=== PATIENT | female | born 1940 | race Caucasian/White ===

== ENCOUNTER 2017-08-24 21:46 | Inpatient (IN) | payer MEDICARE, MEDICAID ==
[~2017-08-24] VITALS: Ht 162.6 cm; Wt 97.1 kg
--- NOTE | 2017-08-24 22:10 | NUR ---
Pt biba from home for c/o severe dizziness and generalized weakness since earlier today. Pt alert and oriented x 4. No neuro deficits noted. Pt ST on monitor. Resp even and unlabored. Pt resting in position of comfort for self. Awaiting further eval.
[2017-08-24] MEDS ORDERED: IV NORMAL SALINE 1000 ML BAG IV ONE (22:15)
[2017-08-24 22:37] LABS: BASOPHILS # (AUTO) 0.2 K/uL (0.0-8.0); BASOPHILS % (AUTO) 0.8 % (0.0-2.0); HEMATOCRIT 42.7 % (37-47); HEMOGLOBIN 14.2 G/DL (12.0-16.0); LYMPHOCYTES # (AUTO) 0.9 K/UL (0.8-4.8); LYMPHOCYTES % (AUTO) 3.7 % (20.5-51.5); MEAN CORPUSCULAR HEMOGLOBIN 29.5 UUG (27.0-31.0); MEAN CORPUSCULAR HGB CONC 33 g/dL (32.0-37.0); MEAN CORPUSCULAR VOLUME 88.4 FL (81.0-99.0); MONOCYTES # (AUTO) 0.5 K/UL (0.1-1.30); MONOCYTES % (AUTO) 2.1 % (0.0-11.0); NEUTROPHILS # (AUTO) 23.6 K/UL (1.8-8.9); NEUTROPHILS % (AUTO) 93.4 % (38.5-71.5); PLATELET COUNT (AUTO) 262 K/UL (150-450); RED BLOOD CELL COUNT(AUTO) 4.83 MIL/UL (4.2-5.4); WHITE BLOOD COUNT (AUTO) 25.2 K/UL (4.0-11.2)
[2017-08-24 22:45] LABS: CARBON DIOXIDE 24 mmol/L (21-32); CHLORIDE 98 mmol/L (98-107); CREATININE 1.1 mg/dL (0.6-1.3); GLUCOSE 231 mg/dL (74-106); POTASSIUM 3.2 mmol/L (3.5-5.1); UREA NITROGEN, BLOOD 21 mg/dL (7-18)
[2017-08-24 22:50] LABS: ALANINE AMINOTRANSFERASE 52 U/L (14-59); ALKALINE PHOSPHATASE 57 U/L (50-136); ASPARTATE AMINOTRANSFERASE 35 U/L (15-37); BILIRUBIN,DIRECT 0.1 mg/dL (0.0-0.2); BILIRUBIN,TOTAL 0.6 mg/dL (0.2-1.0); LIPASE 104 U/L (73-393); TOTAL PROTEIN, SERUM 7.5 g/dL (6.4-8.2)
[2017-08-24 22:52] LABS: BAND % (MANUAL) 7 % (0-10); LYMPHOCYTES % (MANUAL) 6 % (20-40); MONOCYTES % (MANUAL) 3 % (2-10); NEUTROPHILS % (MANUAL) 84 % (42-75)
--- NOTE | 2017-08-24 22:54 | NUR ---
Pt to CT via [facility]
--- NOTE | 2017-08-24 23:13 | NUR ---
Pt returned from CT via [facility].
--- NOTE | 2017-08-24 23:55 | NUR ---
Straight cath UA collected and sent.
[2017-08-25] MEDS ORDERED: PIPERACILLIN SODIUM/TAZOBACTAM 3.375 G in IV DEXTROSE 5% 50 ML IV ONE ×2
[2017-08-25] MEDS ORDERED: VANCOMYCIN IV 1,000 MG in IV DEXTROSE 5% 250 ML IV ONE ×2
[2017-08-25] MEDS ORDERED: IV NORMAL SALINE 1000 ML BAG IV ONE
[2017-08-25 00:02] LABS: *BILIRUBIN,URIN NEGATIVE (NEGATIVE); *BLOOD, URINE NEGATIVE (NEGATIVE); *CLARITY,URINE SLIGHTLY CLOUDY (CLEAR); *COLOR,URINE YELLOW (YELLOW); *KETONES,URINE NEGATIVE (NEGATIVE); *PROTEIN,URINE 1+ (NEGATIVE); *UROBILINOGEN,URINE 0.2 E.U./dl (NORMAL); LEUKOCYTE ESTERASE ,URINE NEGATIVE (NEGATIVE); NITRITE, URINE NEGATIVE (NEGATIVE); UGLUCOSE NEGATIVE (NEGATIVE)
--- NOTE | 2017-08-25 00:19 | NUR ---
ABT infusion started, will monitor for any adverse reactions. Pt resting in a position of comfort for self.
[2017-08-25] MEDS ORDERED: IV NS 1000 ML 1,000 ML IV PRN (00:23)
[2017-08-25] MEDS ORDERED: PIPERACILLIN/TAZOBACTAM/D5W 50 ML IV ONE (00:27)
[2017-08-25 00:29] LABS: BACTERIA,URINE FEW /HPF (NONE SEEN); MUCUS,URINE MANY /LPF (0-FEW); SQUAMOUS EPITHELIAL CELL,UR FEW /HPF (NONE SEEN); WBC,URINE 0-3 /HPF (0-3)
[2017-08-25] MEDS ORDERED: Z GUARD REMEDY PASTE 57 GM TUBE TOP PRN (00:30)
[2017-08-25] MEDS ORDERED: CEFTRIAXONE 1 G in IV DEXTROSE 5% 50 ML IV SCH (00:30)
[2017-08-25] MEDS ORDERED: MAGNESIUM HYDROXIDE 30 ML LIQUID UDC PO PRN (00:30)
[2017-08-25] MEDS ORDERED: ENOXAPARIN SODIUM 40 MG/0.4 ML DISP.SYRIN SQ SCH (00:30)
[2017-08-25] MEDS ORDERED: ONDANSETRON 4 MG/2 ML VIAL IV PRN (00:30)
[2017-08-25] MEDS ORDERED: HYDROCODONE/APAP 5-325MG TABLET PO PRN (00:30)
[2017-08-25] MEDS ORDERED: ACETAMINOPHEN 325 MG TABLET PO PRN (00:30)
[2017-08-25] MEDS ORDERED: ARIP2TAB3 PO (01:23)
[2017-08-25] MEDS ORDERED: EZET10TA13 PO (01:23)
[2017-08-25] MEDS ORDERED: TOLT4CAP PO (01:23)
[2017-08-25] MEDS ORDERED: MECL-102 PO (01:23)
[2017-08-25] MEDS ORDERED: VALS160T2 PO (01:23)
[2017-08-25] MEDS ORDERED: AZIT250T6 PO (01:23)
[2017-08-25] MEDS ORDERED: MONT10TA22 PO (01:23)
[2017-08-25] MEDS ORDERED: COLC0.6T67 PO (01:23)
[2017-08-25] MEDS ORDERED: DICL2SOL TP (01:23)
[2017-08-25] MEDS ORDERED: POTA10CA43 PO (01:23)
[2017-08-25] MEDS ORDERED: janumet PO (01:23)
[2017-08-25] MEDS ORDERED: creon PO (01:23)
--- NOTE | 2017-08-25 01:25 | NUR ---
First ABT infusion completed, no adverse reactions noted. Second ABT infusion started, will monitor for any adverse reactions. Pt up to bedside commode and back to bed without problem. Pt resting in position of comfort for self. No complaints at this time
[2017-08-25] MEDS ORDERED: VANCOMYCIN IV 200 ML ONE (01:30)
--- NOTE | 2017-08-25 01:35 | NUR ---
Received pt at 0135, transferred from ED to Tele via wheelchair. AAO x4. Pt is ambulatory. Vancomycin and fluid bolus infusing at this time. Pt verbalized as to feeling much better than yesterday. IV site on left arm, patent and intact. No signs of acute distress at this time. No c/o pain. BP 151/66. Pt stated to be having Diovan at home twice a day and was not able to take it in the afternoon. MD notified. Safety measures maintained. Call light within reach. Will continue to monitor patient.
--- NOTE | 2017-08-25 01:42 | NUR ---
Patient's family faxed medication list but has no intervals on meds. Will bring bottle of medication later this AM
[2017-08-25] MEDS: VANCOMYCIN FOR PO/GT/NG USE PO SCH ×2 (02:00→06:00)
[2017-08-25 02:05] VITALS: BP 151/66
--- NOTE | 2017-08-25 02:10 | NUR ---
Vancomycin and sepsis fluid bolus still infusing and endorsed to admission floor. Sepsis fluid re-evaluation to be done by admitting RN
--- NOTE | 2017-08-25 03:00 | NUR ---
MD ordered to give one Diovan at this time
[2017-08-25] MEDS ORDERED: VALSARTAN 160 MG TABLET ONE (03:35)
[2017-08-25] MEDS: VALSARTAN 160 MG TABLET PO SCH ×2 (03:36→11:08)
[2017-08-25] MEDS ORDERED: ENOXAPARIN SODIUM 40 MG/0.4 ML DISP.SYRIN SQ ONE (03:38)
[2017-08-25 04:00] VITALS: BP 126/51
[2017-08-25] MEDS ORDERED: CEFTRIAXONE 1 G VIAL ONE (05:01)
--- NOTE | 2017-08-25 08:30 | NUR ---
AWAKE ALERT COOPERATE WELL VS STABLE NO PAIN OR DIZZINESS CONTINUE IVF INFUSION WELL CALL LIGHT WITHIN REACH AND INSTRUCTION TO CALL WHEN NEEDED
[2017-08-25 11:00] VITALS: BP 151/71
[2017-08-25 12:00] VITALS: BP_SYST 129; BP_SYST 141; BP_DIAS 60; BP_DIAS 78
[2017-08-25] MEDS: ARIPIPRAZOLE 2 MG TABLET PO SCH (13:11)
--- NOTE | 2017-08-25 15:00 | NUR ---
DR BAHENA SE PATIENT AND ORDER TO CONVERT IV TO HL
[2017-08-25 15:57] VITALS: BP 147/59
--- NOTE | 2017-08-25 17:00 | NUR ---
HEMODYNAMIC STATUS STABLE NO SOB OR PAIN SAFETY MEASURE PROVIDED CALL [facility]AEZA IN REACH
[2017-08-25 20:00] VITALS: BP 144/69
[2017-08-25] MEDS: EZETIMIBE 10 MG TABLET PO SCH (20:59)
[2017-08-25] MEDS ORDERED: VANCOMYCIN IV 1 G in PREMIXED 0 EACH IV ONE (21:34)
[2017-08-26] MEDS: PIPERACILLIN/TAZOBACTAM/D5W 3.375 G in PREMIXED 1 EACH IV SCH ×4 (01:40→21:07)
[2017-08-26 04:40] VITALS: BP 139/37
[2017-08-26] MEDS ORDERED: CEFTRIAXONE 1 G in IV DEXTROSE 5% 50 ML IV SCH (05:30)
--- NOTE | 2017-08-26 06:30 | NUR ---
PT SLEPT WELL, IN NO ACUTE DISTRESS. IV ANTIBIOTICS ADMINISTERED ORDERED. RIGHT ARM ELEVATED. CALL LIGHT WITHIN REACH, BED ALARM ON. WILL CONTINUE TO MONITOR.
[2017-08-26 06:31] LABS: BASOPHILS # (AUTO) 0.1 K/uL (0.0-8.0); BASOPHILS % (AUTO) 0.7 % (0.0-2.0); EOSINOPHILS # (AUTO) 0.1 K/uL (0.0-0.7); EOSINOPHILS % (AUTO) 0.9 % (0.0-7.0); HEMATOCRIT 39.5 % (37-47); HEMOGLOBIN 13.1 G/DL (12.0-16.0); LYMPHOCYTES # (AUTO) 1.5 K/UL (0.8-4.8); LYMPHOCYTES % (AUTO) 12.3 % (20.5-51.5); MEAN CORPUSCULAR HEMOGLOBIN 29.8 UUG (27.0-31.0); MEAN CORPUSCULAR HGB CONC 33 g/dL (32.0-37.0); MEAN CORPUSCULAR VOLUME 89.8 FL (81.0-99.0); MONOCYTES # (AUTO) 0.8 K/UL (0.1-1.30); MONOCYTES % (AUTO) 6.7 % (0.0-11.0); NEUTROPHILS # (AUTO) 9.9 K/UL (1.8-8.9); NEUTROPHILS % (AUTO) 79.4 % (38.5-71.5); PLATELET COUNT (AUTO) 230 K/UL (150-450); WHITE BLOOD COUNT (AUTO) 12.4 K/UL (4.0-11.2)
[2017-08-26 06:48] LABS: ALANINE AMINOTRANSFERASE 40 U/L (14-59); ALKALINE PHOSPHATASE 40 U/L (50-136); ASPARTATE AMINOTRANSFERASE 26 U/L (15-37); BILIRUBIN,TOTAL 0.4 mg/dL (0.2-1.0); CARBON DIOXIDE 26 mmol/L (21-32); CHLORIDE 108 mmol/L (98-107); CHOLESTEROL 195 mg/dL (<200); CREATININE 0.9 mg/dL (0.6-1.3); GLUCOSE 162 mg/dL (74-106); HDL CHOLESTEROL 35 mg/dL (40-60); MAGNESIUM 2.2 mg/dL (1.8-2.4); PHOSPHOROUS 2.4 mg/dL (2.5-4.9); POTASSIUM 3.4 mmol/L (3.5-5.1); TOTAL PROTEIN, SERUM 6.8 g/dL (6.4-8.2); TRIGLYCERIDES 177 MG/DL (30-150); UREA NITROGEN, BLOOD 13 mg/dL (7-18)
[2017-08-26 07:22] LABS: THYROID STIMULATING HORMONE 9.331 mIU/mL (0.358-3.740)
[2017-08-26] MEDS ORDERED: POTASSIUM CHLORIDE 10 MEQ CAPSULE.SA PO SCH (09:00)
[2017-08-26] MEDS: VALSARTAN 160 MG TABLET PO SCH (10:10)
[2017-08-26] MEDS: MONTELUKAST SODIUM 10 MG TABLET PO SCH (10:10)
[2017-08-26] MEDS: FUROSEMIDE 20 MG/2 ML VIAL IV SCH (10:14)
[2017-08-26] MEDS: ENOXAPARIN SODIUM 40 MG/0.4 ML DISP.SYRIN SQ SCH (10:19)
[2017-08-26] MEDS: ARIPIPRAZOLE 2 MG TABLET PO SCH (10:36)
[2017-08-26] MEDS: POTASSIUM CHLORIDE 8 MEQ CAPSULE.SA PO SCH (11:12)
[2017-08-26 11:56] VITALS: BP 166/74
--- NOTE | 2017-08-26 12:42 | NUR ---
PT IV APPEARS TO BE LEAKING WHILE ANTIBIOTICS ARE RUNNING. NEW IV ABOUT TO BE INSERTED IN THE LEFT ARM IN ORDER TO CONTINUE ANTIBIOTIC ADMINISTRATION OF MEDICATIONS. WILL CONTINUE TO MONITOR PATENCY AND FOR S/S OF INFILTRATION. ALL SAFETY AND COMFORT MEASURES MET AT THIS TIME.
--- NOTE | 2017-08-26 14:10 | NUR ---
Clinical Pharmacy Note: Vancomycin Pharmacy to Dose Subjective: To start vanco in this 77 y/o female for indication of cellulitis Objective: height 162 cm weight 99 kg BUN 13 Scr 0.9 Wbc 12.4 temp 98.1 Vanco 1gm given 08/26 @ 0226 Assessment/Plan Will start regimen of 1500mg q22hr for estimated trough of 15.09. First dose will be today at 1400. Will draw trough before 4th scheduled dose (not ordered yet). Will also check renal function daily and adjust regimen if were to become unstable. Will continue to follow
[2017-08-26] MEDS: VANCOMYCIN IV 1,500 MG in IV DEXTROSE 5% 500 ML IV SCH (14:47)
[2017-08-26 15:23] VITALS: BP 120/47
[2017-08-26] MEDS ORDERED: NEUTRA PHOS PACKET PO ONE (15:30)
[2017-08-26] MEDS ORDERED: POTASSIUM CHLORIDE 20 MEQ TAB.PRT.SR PO ONE (16:30)
[2017-08-26 20:00] VITALS: BP 146/65
[2017-08-26] MEDS: EZETIMIBE 10 MG TABLET PO SCH (21:07)
[2017-08-27 04:00] VITALS: BP 140/66
[2017-08-27] MEDS: PIPERACILLIN/TAZOBACTAM/D5W 3.375 G in PREMIXED 1 EACH IV SCH ×3 (05:03→21:40)
--- NOTE | 2017-08-27 06:00 | NUR ---
PATIENT SLEPT WELL, IN NO ACUTE DISTRESS. NO SIGNIFICANT CHANGE OF CONDITION THROUGHOUT THE SHIFT. SAFETY MEASURES IN PLACE. WILL CONTINUE TO MONITOR.
[2017-08-27 06:31] LABS: CARBON DIOXIDE 29 mmol/L (21-32); CHLORIDE 108 mmol/L (98-107); CREATININE 0.9 mg/dL (0.6-1.3); GLUCOSE 158 mg/dL (74-106); PHOSPHOROUS 2.7 mg/dL (2.5-4.9); POTASSIUM 3.4 mmol/L (3.5-5.1); UREA NITROGEN, BLOOD 11 mg/dL (7-18)
[2017-08-27] MEDS: MONTELUKAST SODIUM 10 MG TABLET PO SCH (10:28)
[2017-08-27] MEDS: ARIPIPRAZOLE 2 MG TABLET PO SCH (10:28)
[2017-08-27] MEDS: POTASSIUM CHLORIDE 8 MEQ CAPSULE.SA PO SCH (10:29)
[2017-08-27] MEDS: VALSARTAN 160 MG TABLET PO SCH ×2 (10:29→15:27)
[2017-08-27] MEDS: FUROSEMIDE 20 MG/2 ML VIAL IV SCH (10:29)
[2017-08-27] MEDS: ENOXAPARIN SODIUM 40 MG/0.4 ML DISP.SYRIN SQ SCH (10:31)
[2017-08-27 11:23] VITALS: BP 167/65
[2017-08-27] MEDS ORDERED: POTASSIUM CHLORIDE 20 MEQ TAB.PRT.SR PO ONE (11:45)
[2017-08-27] MEDS: VANCOMYCIN IV 1,500 MG in IV DEXTROSE 5% 500 ML IV SCH (12:25)
[2017-08-27] MEDS ORDERED: hydrALAZINE HCL 25 MG TABLET PO PRN (15:15)
[2017-08-27 16:03] VITALS: BP 177/78
--- NOTE | 2017-08-27 16:35 | NUR ---
Clinical Pharmacy Note: Vancomycin Pharmacy to Dose Subjective: To continue vanco in this 77 y/o female for indication of cellulitis Objective: height 162 cm weight 99 kg BUN 11 Scr 0.9 Wbc 12.4 (08/26) temp 98.2 Vanco 1gm given 08/26 @ 0226 Assessment/Plan Will continue regimen of 1500mg q22hr for estimated trough of 15.09. second dose will be today at 1200. Will draw trough before 4th scheduled dose (not ordered yet). Will also check renal function daily and adjust regimen if were to become unstable. Will continue to follow
--- NOTE | 2017-08-27 16:38 | NUR ---
TRIGGER FOR SEPSIS DIAGNOSIS PATIENT IS 77 Y/O FEMALE FROM [facility] WITH HX OF HTN,DM PRESENT FOR SEPSIS ON REGULAR DIET,PO INTAKE HAS BEEN IMPROVING ,EATING 50-100% OF MEALS BMI 37.6-OBESITY,CURRENT WEIGHT 219LB,WEIGHT DISCREPANCY NOTICED 08/27 219LB, 08/25-200 LB,LIKELY ERROR IN MEASUREMENTS LABS: 08/27 K-3.4(L),GLUCOSE -158(H),ALBUMIN-2.9(L),TG-177(REC FISH OIL IF CONTINUE TO ELEVATE),WBC-12.4(TRENDING DOWN/IMPROVING),VEO5I-7.1(H) REC CHANGE DIET TO [id number] IF BLOOD SUGAR CONTINUE TO ELEVATE NUTRITION DIAGNOSIS: ALTERED NUTRITION LABS RELATED TO SEPSIS, CELLULITES ON UPPER EXTREMITY, EVIDENCED BY ABOVE LABS NUTRITION INTERVENTION: REC VITAMIN C/MVI FOR CELLULITES,PATIENT ON ANTIBIOTICS, IF BLOOD SUGAR CONTINUE TO ELEVATE,WILL REC CHANGE TO [id number] DIET MONITOR:PO INTAKE,WT,NEW LABS OUTCOME: MAINTAIN 100% OF PO INTAKE DURING HOSPITAL STAY NO N/V/D/C NO SIGNIFICANT WEIGHT CHANGES DURING HOSPITAL STAY IMPROVE IN WBC Addendum: 08/27/17 at [address] Amended: Links added.
[2017-08-27] MEDS: LACTOBACILLUS RHAMNOSUS GG 1 EACH CAPSULE PO SCH (20:56)
[2017-08-27] MEDS: EZETIMIBE 10 MG TABLET PO SCH (20:57)
[2017-08-27] MEDS: ACIDOPHILUS/BULGARICUS CHEW TAB PO SCH (20:57)
[2017-08-27] MEDS ORDERED: SIMVASTATIN 10 MG TABLET PO SCH (21:00)
[2017-08-28] MEDS: PIPERACILLIN/TAZOBACTAM/D5W 3.375 G in PREMIXED 1 EACH IV SCH ×2 (05:37→14:00)
--- NOTE | 2017-08-28 06:27 | NUR ---
ADMITTED FOR SEPSIS. AAOX4 GAMBLE''S ON ANTIBIOTIC THERAPY. TOLERATED WELL. NO ACUTE DISTRESS NOTED. PATIENT ON ISOLATION FOR C.DIFF. STOOL COLLECTED (08/27) RESULTS STILL PENDING. BP 168/79 HYDRALAZINE 25 MG GIVEN FOR BP. WILL MONITOR FOR BP.POSSIBLE D/C TO ACUTE REHAB TODAY.
[2017-08-28] MEDS ORDERED: LEVOTHYROXINE SODIUM 25 MCG TABLET PO SCH (07:00)
--- NOTE | 2017-08-28 07:30 | NUR ---
Received patient awake resting in bed. Patient is awake, alert, and able to verbalize needs. No respiratory distress noted. No Pain or discomfort reported by patient when asked. Bed in lowest position with 2/4 side rails up for safety. Call light within reach. Will continue to monitor
[2017-08-28] MEDS: FUROSEMIDE 20 MG/2 ML VIAL IV SCH (09:00)
[2017-08-28] MEDS: ENOXAPARIN SODIUM 40 MG/0.4 ML DISP.SYRIN SQ SCH (09:00)
[2017-08-28 09:11] LABS: CARBON DIOXIDE 30 mmol/L (21-32); CHLORIDE 105 mmol/L (98-107); GLUCOSE 166 mg/dL (74-106); MAGNESIUM 2.2 mg/dL (1.8-2.4); PHOSPHOROUS 3.2 mg/dL (2.5-4.9); POTASSIUM 3.7 mmol/L (3.5-5.1); UREA NITROGEN, BLOOD 14 mg/dL (7-18)
[2017-08-28 09:27] LABS: BASOPHILS # (AUTO) 0.1 K/uL (0.0-8.0); BASOPHILS % (AUTO) 0.6 % (0.0-2.0); EOSINOPHILS # (AUTO) 0.1 K/uL (0.0-0.7); EOSINOPHILS % (AUTO) 1.4 % (0.0-7.0); HEMATOCRIT 39.4 % (31.2-41.9); HEMOGLOBIN 13.6 g/dL (10.9-14.3); LYMPHOCYTES # (AUTO) 1.3 K/uL (20.0-40.0); LYMPHOCYTES % (AUTO) 15.7 % (20.5-51.5); MEAN CORPUSCULAR HEMOGLOBIN 31.4 uug (24.7-32.8); MEAN CORPUSCULAR HGB CONC 35 g/dL (32.3-35.6); MEAN CORPUSCULAR VOLUME 90.6 fL (75.5-95.3); MONOCYTES # (AUTO) 0.6 K/uL (2.0-10.0); MONOCYTES % (AUTO) 7.4 % (0.0-11.0); NEUTROPHILS # (AUTO) 6.1 K/uL (1.8-8.9); NEUTROPHILS % (AUTO) 74.9 % (38.5-71.5); PLATELET COUNT (AUTO) 256 K/uL (179-408); RED BLOOD CELL COUNT(AUTO) 4.35 MIL/uL (3.63-4.92)
[2017-08-28] MEDS: MONTELUKAST SODIUM 10 MG TABLET PO SCH (09:36)
[2017-08-28] MEDS: ARIPIPRAZOLE 2 MG TABLET PO SCH (09:36)
[2017-08-28] MEDS: POTASSIUM CHLORIDE 8 MEQ CAPSULE.SA PO SCH (09:36)
[2017-08-28] MEDS: ACIDOPHILUS/BULGARICUS CHEW TAB PO SCH (09:36)
[2017-08-28] MEDS: LACTOBACILLUS RHAMNOSUS GG 1 EACH CAPSULE PO SCH (09:37)
--- NOTE | 2017-08-28 09:45 | NUR ---
Patient refused Lovenox & Lasix medications. Patient states that she spoke with , and he said she was going home today and will no longer need them. Will follow up with MD. Patient took all other medications without question. Will continue to monitor
[2017-08-28] MEDS: VALSARTAN 160 MG TABLET PO SCH (09:51)
[2017-08-28] MEDS: VANCOMYCIN IV 1,500 MG in IV DEXTROSE 5% 500 ML IV SCH ×2 (10:00→10:16)
[2017-08-28 10:11] LABS: WHITE BLOOD COUNT (AUTO) 8.1 K/uL (3.8-11.8)
--- NOTE | 2017-08-28 10:23 | NUR ---
WENT TO [facility] AND PT AGREED, HOWEVER IV LEAKING AND PT REFUSED TO HAVE ANOTHER REINSERTED. WILL NOTIFY NEWS ANALYST
[2017-08-28 11:45] VITALS: BP 112/55
[2017-08-28] MEDS ORDERED: LACT1CAP57 PO (13:06)
[2017-08-28] MEDS ORDERED: SIMV10TA6 PO (13:06)
[2017-08-28] MEDS ORDERED: DOXY100C2 PO (13:16)
[2017-08-28] MEDS ORDERED: LEVO25TA9 PO (13:16)
[2017-08-28] MEDS ORDERED: ACID1TAB4 PO (13:16)
[2017-08-28] MEDS ORDERED: CEPH-570 PO (13:16)
[2017-08-28] MEDS ORDERED: FURO-152 PO (13:16)
--- NOTE | 2017-08-28 13:20 | NUR ---
Discontinued IV per MD instruction. Skin site intact. Will continue to monitor
--- NOTE | 2017-08-28 13:53 | NUR ---
Patient scheduled to be discharged. Patient is awake and oriented. Respirations are unlabored. No pain or discomfort reported by patient when asked. No distress noted. Patient Has received all discharge paperwork, including medication prescriptions. Patient is being picked up by her God Daughter Marisol.
--- NOTE | 2017-08-28 14:41 | NUR ---
IV Antibiotic held per MD instruction. Patient is being discharged
--- NOTE | 2017-08-28 14:44 | NUR ---
Patient discharged to home. Patient left with God Daughter Marisol @ [phone]
== END 2017-08-28 14:50 | disposition home or self-care (01) | DRG 871 ==
LOC: ER 21:47 → TELE 08-25 01:48 → MED 08-25 14:25
PROVIDERS: ATTEND Internal Medicine
DX: A41.9 Sepsis, unspecified organism (principal); I50.31 Acute diastolic (congestive) heart failure; E87.1 Hypo-osmolality and hyponatremia; E11.65 Type 2 diabetes mellitus with hyperglycemia; L03.113 Cellulitis of right upper limb; I97.2 Postmastectomy lymphedema syndrome; E66.01 Morbid (severe) obesity due to excess calories; E87.6 Hypokalemia; Z68.37 Body mass index [BMI] 37.0-37.9, adult; Z90.11 Acquired absence of right breast and nipple; M19.90 Unspecified osteoarthritis, unspecified site; Z79.899 Other long term (current) drug therapy; Z79.84 Long term (current) use of oral hypoglycemic drugs; E78.5 Hyperlipidemia, unspecified; I11.0 Hypertensive heart disease with heart failure; I25.10 Atherosclerotic heart disease of native coronary artery without angina pectoris; R42 Dizziness and giddiness
CPT/HCPCS: 36415; 70030-TC; 70450; 71010; 82306; 83605; 83690; 83735; 84100; 84443; 85025; 87040; 87086; 93005; 93307; A4663; J0696; J1650; J1940; J2543; J3370; J7030; J7050; J7060